=== PATIENT | female | born 1980 | race Caucasian/White ===

== ENCOUNTER 2016-12-05 08:00 | Day surgery (SDC) | payer BC, OTHER, SELFPAY ==
[2016-12-04 16:23] LABS: CHLORIDE,CL 105 mmol/L (98-110); SODIUM,NA 141 mmol/L (136-146)
[~2016-12-05 08:00] MED LIST: Lactated Ringers 1,000 ML IV SCH; Sodium Chloride 0.9% 10 ML Syringe FLUSH PRN; Sodium Chloride 0.9% 2.5 ML Syringe FLUSH PRN
[2016-12-05] MEDS ORDERED: Lidocaine 2% 5 ML SDV ONE (08:18)
[2016-12-05] MEDS ORDERED: fentaNYL 100 MCG/2 ML SDV ONE (08:19)
[2016-12-05] MEDS ORDERED: Midazolam 1 MG/ML 2 ML SDV ONE (08:19)
[2016-12-05] MEDS ORDERED: Propofol 200 MG/20 ML SDV ONE (08:19)
[2016-12-05] MEDS ORDERED: Lidocaine 1% 20 ML MDV ONE (08:42)
--- NOTE | 2016-12-05 08:43 | PCM.PREANE ---
Preanesthetic Assessment - Anesthesia/Transfusion/Family Hx Anesthesia History: Prior Anesthesia Reaction Type of Anesthesia Reaction: Other (see below) (hypotension and "heart stopped" after labor epidural placement and initial dosing) Transfusion History: No Prior Transfusion(s) - Review of Systems General: No Symptoms Pulmonary: No Symptoms Cardiovascular: No Symptoms Gastrointestinal: No symptoms Neurological: No Symptoms Other: Reports: None - Physical Assessment NPO Status Date: 12/04/16 O2 Sat by Pulse Oximetry: 98 Respiratory Rate: 16 Vital Signs: Last Vital Signs Temp 37.0 C 12/05/16 08:15 Pulse 86 12/05/16 08:15 Resp 16 12/05/16 08:15 BP 115/77 12/05/16 08:15 Pulse Ox 98 12/05/16 08:15 Height: 1.6 m Weight: 59.874 kg ASA Class: 2 Airway Class: Mallampati = 2 Dentition: Reports: Normal Dentition ROM/Head Extension: Full Lungs: Clear to auscultation, Normal respiratory effort Cardiovascular: Regular Rate, Regular Rhythm - Lab Values: Laboratory Last Values WBC 6.21 K/uL (4.0-11.0) 12/04/16 15:49 RBC 4.54 M/uL (4.30-5.90) 12/04/16 15:49 Hgb 13.4 g/dL (12.0-16.0) 12/04/16 15:49 Hct 41.2 % (36.0-46.0) 12/04/16 15:49 MCV 90.7 fL (80.0-98.0) 12/04/16 15:49 MCH 29.5 pg (27.0-32.0) 12/04/16 15:49 MCHC 32.5 g/dL (31.0-37.0) 12/04/16 15:49 RDW Std Deviation 45.6 fl (28.0-62.0) 12/04/16 15:49 RDW Coeff of Padma 14 % (11.0-15.0) 12/04/16 15:49 Plt Count 201 K/uL (150-400) 12/04/16 15:49 MPV 10.80 fL (7.40-12.00) 12/04/16 15:49 Nucleated RBC % 0.0 /100WBC 12/04/16 15:49 Nucleated RBCs # 0 K/uL 12/04/16 15:49 Sodium 141 mmol/L (136-146) 12/04/16 15:49 Potassium 4.0 mmol/L (3.5-5.1) 12/04/16 15:49 Chloride 105 mmol/L (98-110) 12/04/16 15:49 Carbon Dioxide 27 mmol/L (21-31) 12/04/16 15:49 BUN 7 mg/dL (6.0-23.0) 12/04/16 15:49 Creatinine 0.8 mg/dL (0.6-1.5) 12/04/16 15:49 Est Cr Clr Drug Dosing 80.42 mL/min 12/04/16 15:49 Estimated GFR (MDRD) > 60.0 ml/min 12/04/16 15:49 Glucose 71 mg/dL (60-110) 12/04/16 15:49 Calcium 8.9 mg/dL (8.8-10.8) 12/04/16 15:49 HCG, Qual NEGATIVE (NEG) 12/04/16 15:49 Blood Type B POSITIVE 12/04/16 15:49 Antibody Screen NEGATIVE 12/04/16 15:49 - Allergies Allergies/Adverse Reactions: Allergies Allergy/AdvReac Type Severity Reaction Status Date / Time divalproex sodium Allergy Swelling Verified 06/12/16 16:38 [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: Musculoskeletal History: Neurological History: Reports: Other (see below) Other Neuro History: febrile seizures as a child Psychiatric History: Reports: Anxiety, Depression - Infectious Disease History Infectious Disease History: Reports: None - Past Surgical History Head Surgeries/Procedures: Reports: None HEENT Surgical History: Reports: Oral surgery, Other (see below) Other HEENT Surgeries/Procedures: wisdom tooth surgery - SUBSTANCE USE Smoking Status *Q: Never Smoker Recreational Drug Use History: No - HOME MEDS Home Medications: Home Meds Diazepam [Valium] 1 tab PO ASDIRECTED PRN 11/12/16 [History] Multivitamin [Multivitamins] 1 tab PO DAILY 11/12/16 [History] Pseudoephedrine HCl [Sudafed] 30 mg PO DAILY 11/12/16 [History] buPROPion HCl [Wellbutrin Xl] 1 tab PO DAILY 11/12/16 [History] - CURRENT (IN HOUSE) MEDS Current Meds: Current Medications Lactated Ringer's (Ringers, Lactated) 1,000 mls @ 125 mls/hr IV ASDIRECTED LASHAWN Last Admin: 12/05/16 08:17 Dose: 125 mls/hr Sodium Chloride (Saline Flush) 10 ml FLUSH ASDIRECTED PRN PRN Reason: Keep Vein Open Sodium Chloride (Saline Flush) 2.5 ml FLUSH ASDIRECTED PRN PRN Reason: Keep Vein Open Discontinued Medications Fentanyl (Sublimaze) Confirm Administered Dose 100 mcg .ROUTE .STK-MED ONE Stop: 12/05/16 08:20 Lidocaine (Xylocaine-Mpf 2%) Confirm Administered Dose 5 ml .ROUTE .STK-MED ONE Stop: 12/05/16 08:19 Midazolam HCl (Versed 1 Mg/Ml) Confirm Administered Dose 2 mg .ROUTE .STK-MED ONE Stop: 12/05/16 08:20 Propofol (Diprivan 20 Ml) Confirm Administered Dose 400 mg .ROUTE .STK-MED ONE Stop: 12/05/16 08:20 Preanesthetic Assessment - ANESTHESIA/TRANSFUSION/FAMILY HX Family History of Anesthesia Reaction: No - PHYSICAL ASSESSMENT O2 Sat by Pulse Oximetry: 98 RR: 16 Vital Signs: Last Vital Signs Temp 37.0 C 12/05/16 08:15 Pulse 86 12/05/16 08:15 Resp 16 12/05/16 08:15 BP 115/77 12/05/16 08:15 Pulse Ox 98 12/05/16 08:15 Height: 1.6 m Weight: 59.874 kg - LAB Values: Laboratory Last Values WBC 6.21 K/uL (4.0-11.0) 12/04/16 15:49 RBC 4.54 M/uL (4.30-5.90) 12/04/16 15:49 Hgb 13.4 g/dL (12.0-16.0) 12/04/16 15:49 Hct 41.2 % (36.0-46.0) 12/04/16 15:49 MCV 90.7 fL (80.0-98.0) 12/04/16 15:49 MCH 29.5 pg (27.0-32.0) 12/04/16 15:49 MCHC 32.5 g/dL (31.0-37.0) 12/04/16 15:49 RDW Std Deviation 45.6 fl (28.0-62.0) 12/04/16 15:49 RDW Coeff of Padma 14 % (11.0-15.0) 12/04/16 15:49 Plt Count 201 K/uL (150-400) 12/04/16 15:49 MPV 10.80 fL (7.40-12.00) 12/04/16 15:49 Nucleated RBC % 0.0 /100WBC 12/04/16 15:49 Nucleated RBCs # 0 K/uL 12/04/16 15:49 Sodium 141 mmol/L (136-146) 12/04/16 15:49 Potassium 4.0 mmol/L (3.5-5.1) 12/04/16 15:49 Chloride 105 mmol/L (98-110) 12/04/16 15:49 Carbon Dioxide 27 mmol/L (21-31) 12/04/16 15:49 BUN 7 mg/dL (6.0-23.0) 12/04/16 15:49 Creatinine 0.8 mg/dL (0.6-1.5) 12/04/16 15:49 Est Cr Clr Drug Dosing 80.42 mL/min 12/04/16 15:49 Estimated GFR (MDRD) > 60.0 ml/min 12/04/16 15:49 Glucose 71 mg/dL (60-110) 12/04/16 15:49 Calcium 8.9 mg/dL (8.8-10.8) 12/04/16 15:49 HCG, Qual NEGATIVE (NEG) 12/04/16 15:49 Blood Type B POSITIVE 12/04/16 15:49 Antibody Screen NEGATIVE 12/04/16 15:49 - ALLERGIES Allergies/Adverse Reactions: Allergies Allergy/AdvReac Type Severity Reaction Status Date / Time divalproex sodium Allergy Swelling Verified 06/12/16 16:38 [From [facility]]
[2016-12-05] MEDS ORDERED: fentaNYL 100 MCG/2 ML SDV IVPUSH PRN (09:31)
[2016-12-05] MEDS ORDERED: Ketorolac 30 MG/ML SDV IVPUSH ONE (09:45)
[2016-12-05] MEDS ORDERED: Morphine 2 MG/ML Syringe IVPUSH PRN (09:45)
[2016-12-05] MEDS ORDERED: Morphine 4 MG/ML Syringe IVPUSH PRN (09:45)
[2016-12-05] MEDS ORDERED: Ketorolac 30 MG/ML SDV IVPUSH PRN (09:45)
[2016-12-05] MEDS ORDERED: Promethazine 25 MG/ML SDV IM PRN (09:45)
[2016-12-05] MEDS ORDERED: Ondansetron 4 MG/2 ML SDV IVPUSH PRN (09:45)
[2016-12-05] MEDS ORDERED: Acetaminophen/oxyCODONE 325-5 MG Tab PO PRN ×2 (09:45)
--- NOTE | 2016-12-05 09:48 | PCM.OPNOTE ---
- General Post-Op/Procedure Note Date of Surgery/Procedure: 12/05/16 Operative Procedure(s): leep Post-Op Diagnosis: Same Anesthesia Technique: MAC Primary Surgeon: Vitaliy Werner Computer Artist: Bhavani Solano Complications: None Condition: Good
--- NOTE | 2016-12-05 09:49 | PCM.DCSUM1 ---
Discharge Summary - Discharge Data Discharge Date: 12/05/16 Discharge Disposition: Home, Self-Care 01 Condition: Good - Patient Summary/Data Operative Procedure(s) Performed: leep - Patient Instructions Diet: Usual Diet as Tolerated Activity: As Tolerated Showering/Bathing: January Shower - Discharge Plan Home Medications: Home Meds Diazepam [Valium] 1 tab PO ASDIRECTED PRN 11/12/16 [History] Multivitamin [Multivitamins] 1 tab PO DAILY 11/12/16 [History] Pseudoephedrine HCl [Sudafed] 30 mg PO DAILY 11/12/16 [History] buPROPion HCl [Wellbutrin Xl] 1 tab PO DAILY 11/12/16 [History] - Discharge Summary/Plan Comment DC Time >30 min.: Yes - General Info Date of Service: 12/05/16 Functional Status: Reports: pain controlled - Review of Systems General: Reports: No Symptoms HEENT: Reports: no symptoms Pulmonary: Reports: no symptoms Cardiovascular: Reports: No Symptoms Gastrointestinal: Reports: No symptoms Genitourinary: Reports: no symptoms Musculoskeletal: Reports: no symptoms Skin: Reports: no symptoms Neurological: Reports: No Symptoms Psychiatric: Reports: no symptoms - Patient Data Vitals - Most Recent: Last Vital Signs Temp 37.0 C 12/05/16 08:15 Pulse 86 12/05/16 08:15 Resp 16 12/05/16 08:43 BP 115/77 12/05/16 08:15 Pulse Ox 98 12/05/16 08:43 Weight - Most Recent: 59.874 kg Lab Results - Last 24 hrs: Laboratory Results - last 24 hr 12/04/16 12/04/16 12/04/16 Range/Units 15:49 15:49 15:49 WBC 6.21 (4.0-11.0) K/uL RBC 4.54 (4.30-5.90) M/uL Hgb 13.4 (12.0-16.0) g/dL Hct 41.2 (36.0-46.0) % MCV 90.7 (80.0-98.0) fL MCH 29.5 (27.0-32.0) pg MCHC 32.5 (31.0-37.0) g/dL RDW Std Deviation 45.6 (28.0-62.0) fl RDW Coeff of Padma 14 (11.0-15.0) % Plt Count 201 (150-400) K/uL MPV 10.80 (7.40-12.00) fL Nucleated RBC % 0.0 /100WBC Nucleated RBCs # 0 K/uL Sodium 141 (136-146) mmol/L Potassium 4.0 (3.5-5.1) mmol/L Chloride 105 (98-110) mmol/L Carbon Dioxide 27 (21-31) mmol/L BUN 7 (6.0-23.0) mg/dL Creatinine 0.8 (0.6-1.5) mg/dL Est Cr Clr Drug Dosing 80.42 mL/min Estimated GFR (MDRD) > 60.0 ml/min Glucose 71 (60-110) mg/dL Calcium 8.9 (8.8-10.8) mg/dL HCG, Qual NEGATIVE (NEG) Blood Type Antibody Screen 12/04/16 Range/Units 15:49 WBC (4.0-11.0) K/uL RBC (4.30-5.90) M/uL Hgb (12.0-16.0) g/dL Hct (36.0-46.0) % MCV (80.0-98.0) fL MCH (27.0-32.0) pg MCHC (31.0-37.0) g/dL RDW Std Deviation (28.0-62.0) fl RDW Coeff of Padma (11.0-15.0) % Plt Count (150-400) K/uL MPV (7.40-12.00) fL Nucleated RBC % /100WBC Nucleated RBCs # K/uL Sodium (136-146) mmol/L Potassium (3.5-5.1) mmol/L Chloride (98-110) mmol/L Carbon Dioxide (21-31) mmol/L BUN (6.0-23.0) mg/dL Creatinine (0.6-1.5) mg/dL Est Cr Clr Drug Dosing mL/min Estimated GFR (MDRD) ml/min Glucose (60-110) mg/dL Calcium (8.8-10.8) mg/dL HCG, Qual (NEG) Blood Type B POSITIVE Antibody Screen NEGATIVE Med Orders - Current: Current Medications Fentanyl (Sublimaze) 50 mcg IVPUSH .Q5MIN PRN PRN Reason: Pain Stop: 12/09/16 09:32 Lactated Ringer's (Ringers, Lactated) 1,000 mls @ 125 mls/hr IV ASDIRECTED LASHAWN Last Admin: 12/05/16 08:17 Dose: 125 mls/hr Ketorolac Tromethamine (Toradol) 30 mg IVPUSH ONETIME ONE Stop: 12/05/16 09:46 Ketorolac Tromethamine (Toradol) 30 mg IVPUSH Q6H PRN PRN Reason: Pain (severe 7-10) Stop: 12/10/16 09:45 Morphine Sulfate (Morphine) 2 mg IVPUSH Q2H PRN PRN Reason: Pain (severe 7-10) Morphine Sulfate (Morphine) 4 mg IVPUSH Q2H PRN PRN Reason: Pain (severe 7-10) Ondansetron HCl (Zofran) 4 mg IVPUSH Q6H PRN PRN Reason: Nausea/Vomiting Oxycodone/Acetaminophen (Percocet 325-5 Mg) 1 tab PO Q4H PRN PRN Reason: Pain (moderate 4-6) Oxycodone/Acetaminophen (Percocet 325-5 Mg) 2 tab PO Q4H PRN PRN Reason: Pain (moderate 4-6) Promethazine HCl (Phenergan) 25 mg IM Q6H PRN PRN Reason: Nausea/Vomiting Sodium Chloride (Saline Flush) 10 ml FLUSH ASDIRECTED PRN PRN Reason: Keep Vein Open Sodium Chloride (Saline Flush) 2.5 ml FLUSH ASDIRECTED PRN PRN Reason: Keep Vein Open Discontinued Medications Fentanyl (Sublimaze) Confirm Administered Dose 100 mcg .ROUTE .STK-MED ONE Stop: 12/05/16 08:20 Lidocaine (Xylocaine-Mpf 2%) Confirm Administered Dose 5 ml .ROUTE .STK-MED ONE Stop: 12/05/16 08:19 Lidocaine HCl (Xylocaine 1%) Confirm Administered Dose 20 ml .ROUTE .STK-MED ONE Stop: 12/05/16 08:43 Midazolam HCl (Versed 1 Mg/Ml) Confirm Administered Dose 2 mg .ROUTE .STK-MED ONE Stop: 12/05/16 08:20 Propofol (Diprivan 20 Ml) Confirm Administered Dose 400 mg .ROUTE .STK-MED ONE Stop: 12/05/16 08:20 - Exam General: Reports: alert, oriented HEENT: Reports: Pupils equal, Pupils reactive, EOMI, Mucous membr. moist/pink Neck: Reports: supple Lungs: Reports: Clear to auscultation, Normal respiratory effort Cardiovascular: Reports: Regular Rate, Regular Rhythm Abdomen: Reports: bowel sounds present, soft, no tenderness, no distension (Female) Exam: Normal external exam, Normal speculum exam, Normal bimanual exam Rectal (Female) Exam: Normal Exam, Normal rectal tone Back Exam: Reports: normal inspection, full range of motion Extremities: Reports: no edema, normal pulses Skin: Reports: warm, dry, intact Wound/Incisions: Reports: healing well Neurological: Reports: no new focal deficit Psy/Mental Status: Reports: alert, normal affect, normal mood *Q Meaningful Use (DIS) - VTE *Q VTE Criteria *Q: - Stroke *Q Stroke Criteria *Q: - AMI *Q AMI Criteria *Q:
--- NOTE | 2016-12-05 10:23 | PCM.POSTAN ---
POST ANESTHESIA ASSESSMENT - MENTAL STATUS Mental Status: alert, oriented - RESPIRATORY Respiratory Status: respiratory rate WNL, airway patent - CARDIOVASCULAR CV Status: pulse rate WNL, blood pressure stable - GASTROINTESTINAL GI Status: no symptoms - POST OP HYDRATION Hydration Status: adequate & stable
--- NOTE | 2016-12-05 11:37 | OR ---
SURGEON: Vitaliy Werner MD DATE OF PROCEDURE: PREOPERATIVE DIAGNOSIS: High-grade abnormal Pap smear. POSTOPERATIVE DIAGNOSIS: High-grade abnormal Pap smear. OPERATION PERFORMED: LEEP conization of the cervix. ASSISTANTS: BRENDA bush and BINU Thomas. ANESTHESIA: MAC, Veronica Cherry. ESTIMATED BLOOD LOSS: Minimum. COMPLICATION: None. FINDINGS: High-grade abnormal Pap smear. INDICATION: Dietrich referred to the admit note. PROCEDURE IN DETAIL: The patient was brought to the OR, properly identified, and after adequate level of MAC anesthesia, the patient was placed in lithotomy position, prepped and draped in sterile fashion as usual and a weighted speculum was placed in vagina and then 1% Xylocaine injected around the cervix. Using a loop excision, cone shaped biopsy was removed from the cervix and sent for histopathology and then the base of the cone biopsy was cauterized with a ball electrocautery to stop the bleeding. Once that was accomplished, the procedure was ended and the patient tolerated the procedure well, went to recovery room in stable general condition. ARDEN / WILLIAN /[id number]
[2016-12-05 11:41] VITALS: BP 127/80
--- NOTE | 2016-12-05 12:05 | PCM48HPAN ---
Post Anesthesia Note - EVALUATION WITHIN 48HRS OF ANESTHETIC Vital Signs in Normal Range: Yes Patient Participated in Evaluation: Yes Respiratory Function Stable: Yes Airway Patent: Yes Cardiovascular Function Stable: Yes Hydration Status Stable: Yes Pain Control Satisfactory: Yes Nausea and Vomiting Control Satisfactory: Yes Mental Status Recovered: Yes
== END 2016-12-05 11:30 | disposition home or self-care (01) ==
LOC: MW.SDS 08:00
PROVIDERS: ATTEND Obstetrics & Gynecology
DX: N87.1 Moderate cervical dysplasia (principal); Z88.8 Allergy status to other drugs, medicaments and biological substances; Z79.899 Other long term (current) drug therapy; Z87.898 Personal history of other specified conditions
CPT/HCPCS: 36415; 57522; 80048; 84703; 85027; 86850; 86900; 86901; J2250; J3010; J7120; 00940; 88307; J2704

== ENCOUNTER → 2016-12-30 | Outpatient (CLI) | payer BC | LOC: MW.CHOBGYN 11:49 | PROVIDERS: ATTEND Obstetrics & Gynecology | DX: D64.9 Anemia, unspecified (principal) | CPT/HCPCS: 36415; 85014; 85018 ==

== ENCOUNTER 2017-02-19 18:10 | Emergency (ER) | payer BC, OTHER, SELFPAY ==
--- NOTE | 2017-02-19 18:31 | EDM.PDOC ---
ED HPI GENERAL MEDICAL PROBLEM - General Chief Complaint: Flank Pain Stated Complaint: STOMACH PAIN Time Seen by Provider: 02/19/17 18:26 Source of Information: Reports: Patient History Limitations: Reports: No Limitations - History of Present Illness INITIAL COMMENTS - FREE TEXT/NARRATIVE: HISTORY AND PHYSICAL: [36-year-old female presenting with right flank pain] History of Present Illness: [Patient has dysuria for 2 weeks she's had a stabbing pain for 4 days Similar to pain she has had in the past with previous renal stones] Review of Systems: As per history of present illness and below otherwise all systems reviewed and negative. Patient has history of previous renal stones Past medical history: As per history of present illness and as reviewed below otherwise noncontributory. Surgical history: As per history of present illness and as reviewed below otherwise noncontributory. Social history: No reported history of drug or alcohol abuse. Family history: As per history of present illness and as reviewed below otherwise noncontributory. Physical exam: Alert and oriented female who looks somewhat miserable HEENT: Atraumatic, normocehpalic, pupils reactive, negative for conjunctival pallor or scleral icterus, mucous membranes moist, throat clear, neck supple, nontender, trachea midline. Lungs: Clear to auscultation, breath sounds equal bilaterally, chest non tender. Heart: S1S2, regular, negative for clicks, rubs, or JVD. Abdomen: Soft, nondistended, nontender. Negative for masses or hepatossplenmegaly. Positive for costovertebral tenderness.R>L Pelvis: Stable nontender. Genitourinary: Deferred. Rectal: Deferred Extremities: Atraumatic, negative for cords or calf pain. Neurovascular unremarkable. Neuro: Awake, alert, oriented. Cranial nerves II through XII unremarkable. Cerebellum unremarkable. Motor and sensory unremarkable throughout. Exam nonfocal. Diagnostics: [CT abdomen pelvis UA] Therapeutics: [Toradol IM] Impression: [Right flank pain Moderate Stool] Plan: [Stool softener or laxative Referral to Dr. Valenzuela urologist] Definitive disposition and diagnosis as appropriate pending reevaluation and review of above. Onset: Gradual Duration: Day(s): (4), Getting Worse, Waxing/Waning Location: Reports: Back, Other (flank) Quality: Reports: Ache, Stabbing Severity: Severe Improves with: Reports: None Worsens with: Reports: None Right Flank Pain Score (Numeric/FACES): 6 - Related Data Allergies Allergy/AdvReac Type Severity Reaction Status Date / Time divalproex sodium Allergy Swelling Verified 06/12/16 16:38 [From Depakote] Home Meds: Home Meds Diazepam [Valium] 1 tab PO ASDIRECTED PRN 11/12/16 [History] Multivitamin [Multivitamins] 1 tab PO DAILY 11/12/16 [History] Pseudoephedrine HCl [Sudafed] 30 mg PO DAILY 11/12/16 [History] buPROPion HCl [Wellbutrin Xl] 1 tab PO DAILY 11/12/16 [History] Past Medical History HEENT History: Reports: Other (See Below) Other HEENT History: wears glasses Cardiovascular History: Reports: None Respiratory History: Reports: None Gastrointestinal History: Reports: None Genitourinary History: Reports: Renal Calculus 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 ED EXAM, GI/ABD - Physical Exam Exam: See Below (See dictation) Course - Vital Signs Last Recorded V/S: Last Vital Signs Temp 36.9 C 02/19/17 18:19 Pulse 86 02/19/17 18:19 Resp 15 02/19/17 18:19 BP 129/86 02/19/17 18:19 Pulse Ox 99 02/19/17 18:19 - Orders/Labs/Meds Orders: Active Orders 24 hr Category Date Time Status Abdomen Pelvis wo Cont [CT] Stat Exams 02/19/17 18:31 Taken Labs: Laboratory Tests 02/19/17 02/19/17 Range/Units 18:16 18:16 Urine Color YELLOW Urine Appearance CLEAR Urine pH 6.5 (5.0-8.0) Ur Specific [place] 1.010 (1.001-1.035) Urine Protein NEGATIVE (NEGATIVE) mg/dL Urine Glucose (UA) NEGATIVE (NEGATIVE) mg/dL Urine Ketones NEGATIVE (NEGATIVE) mg/dL Urine Occult Blood NEGATIVE (NEGATIVE) Urine Nitrite NEGATIVE (NEGATIVE) Urine Bilirubin NEGATIVE (NEGATIVE) Urine Urobilinogen 0.2 (<2.0) EU/dL Ur Leukocyte Esterase NEGATIVE (NEGATIVE) Urine RBC 0-1 (0-2/HPF) Urine WBC 0-1 (0-5/HPF) Ur Epithelial Cells RARE (NONE-FEW) Urine Bacteria RARE (NEGATIVE) Urine HCG, Qual NEGATIVE (NEGATIVE) Departure - Departure Time of Disposition: 19:38 Disposition: Home, Self-Care 01 Condition: good Clinical Impression: Renal calculus, Constipation - Discharge Information Referrals: Ivania Palmer NP [Primary Care Provider] - Don Valenzuela MD [Physician] - Forms: ED Department Discharge Additional Instructions: The following information is given to patients seen in the emergency department who are being discharged to home. This information is to outline your options for follow-up care. We provide all patients seen in our emergency department with a follow-up referral. The need for follow-up, as well as the timing and circumstances, are variable depending upon the specifics of your emergency department visit. If you don't have a primary care physician on staff, we will provide you with a referral. We always advise you to contact your personal physician following an emergency department visit to inform them of the circumstance of the visit and for follow-up with them and/or the need for any referrals to a consulting specialist. The emergency department will also refer you to a specialist when appropriate. This referral assures that you have the opportunity for followup care with a specialist. All of these measure are taken in an effort to provide you with optimal care, which includes your followup. Under all circumstances we always encourage you to contact your private physician who remains a resource for coordinating your care. When calling for followup care, please make the office aware that this follow-up is from your recent emergency room visit. If for any reason you are refused follow-up, please contact the [facility] emergency department at and asked to speak to the emergency department charge nurse. Referral has been made to Dr. Valenzuela, urologist [facility] - Urology [address] [place] [id number] Please call for an appointment for followup care Stool softener for mild laxative - My Orders Last 24 Hours: My Active Orders 02/19/17 18:31 Abdomen Pelvis wo Cont [CT] Stat - Assessment/Plan Last 24 Hours: My Active Orders 02/19/17 18:31 Abdomen Pelvis wo Cont [CT] Stat
[2017-02-19 20:01] VITALS: BP 118/75
--- NOTE | 2017-02-20 10:50 | CT ---
EXAM DATE: 02/19/17 PATIENT'S AGE: 36 Patient: RAJAN PARR Facility: [place], [place] Site . Site : [id number] Study: CT Abdomen/Pelvis [id number]/7/2017 7:16:35 PM Ordering Physician: Doctor Cervantes Final Report: INDICATION: bilateral flank pain TECHNIQUE: CT abdomen and pelvis without contrast. COMPARISON: None FINDINGS: Lower chest: Unremarkable. Liver: Unremarkable. Spleen: Unremarkable. Pancreas: Unremarkable. Gallbladder and bile ducts: Unremarkable. Kidneys: Punctate nonobstructing intrarenal calculi. Adrenal glands: Unremarkable. GI tract: Moderate amount of stool. Appendix is normal. Vascular structures: Unremarkable. Lymph nodes: Unremarkable. Miscellaneous: Unremarkable. No free air or significant free fluid. Pelvic Organs: Unremarkable. Bones: Unremarkable for age. IMPRESSION: 1. Punctate nonobstructing intrarenal calculi. 2. Moderate amount of stool. Dictated by Ari Valerio MD @ 02/19/2017 7:30:02 PM Dictated by: Ari Valerio MD @ 02/19/2017 19:32:41 (Electronic Signature) Report Signed by Proxy. [facility]
== END 2017-02-19 19:59 | disposition home or self-care (01) ==
LOC: MW.ED 18:10
DX: N20.0 Calculus of kidney (principal); K59.00 Constipation, unspecified; F41.9 Anxiety disorder, unspecified; F32.9 Major depressive disorder, single episode, unspecified; Z79.899 Other long term (current) drug therapy; Z88.8 Allergy status to other drugs, medicaments and biological substances
CPT/HCPCS: 74176; 74176-26; 81001; 81025; 99284; 99284-25

== ENCOUNTER 2017-09-15 17:11 | Emergency (ER) | payer BC, OTHER, SELFPAY ==
[2017-09-15] MEDS ORDERED: Ondansetron 4 MG/2 ML SDV IVPUSH ONE (17:51)
[2017-09-15] MEDS ORDERED: Ketorolac 30 MG/ML SDV IVPUSH ONE (17:51)
[2017-09-15] MEDS ORDERED: Sodium Chloride 0.9% 1,000 ML IV ONE (17:51)
[2017-09-15] MEDS ORDERED: methylPREDNISolone Sodium Succinate 125 MG/2 ML SDV IVPUSH ONE (17:52)
[2017-09-15] MEDS ORDERED: Sodium Chloride 0.9% 10 ML Syringe FLUSH PRN (17:52)
[2017-09-15] MEDS ORDERED: LORazepam 2 MG/ML MDV IVPUSH ONE (17:52)
[2017-09-15] MEDS ORDERED: diphenhydrAMINE 50 MG/ML SDV IVPUSH ONE (17:52)
[2017-09-15] MEDS ORDERED: Sodium Chloride 0.9% 2.5 ML Syringe FLUSH PRN (17:52)
--- NOTE | 2017-09-15 17:56 | EDM.PDOC ---
ED HPI GENERAL MEDICAL PROBLEM - General Chief Complaint: Headache Stated Complaint: HEADACHE Time Seen by Provider: 09/15/17 17:40 - History of Present Illness INITIAL COMMENTS - FREE TEXT/NARRATIVE: HISTORY AND PHYSICAL: History of present illness: The patient is a 37-year-old female with a history of anxiety and intermittent neck muscular problems for which she sees her provider at [facility], Keila Palmer, as well as Dr. Stewart our neurologist in the past; the patient presents today with left-sided neck pain and muscle pain that then progressed to a left-sided headache 8 days ago and has been constant despite taking [id number] Midol ibuprofen and Tylenol. The patient says she was going to get her period in the next couple of days and thought it might be related but has no migraine history and she denies any photophobia or weakness in her extremities with this headache. She says she has had chronic issues with musculoskeletal neck problems and has seen a chiropractor in the past as well. Patient had an MRI with Dr. Stewart on October 04 of last year and the results of that test have been reviewed by me which indicated a tiny diffuse disc bulge noted at C4 C5 and a small to moderate diffuse disc bulge noted at C5 -C6 resulting in some mild spinal canal stenosis and moderate bilateral neural foraminal stenosis. The patient says that these results were related to her but she has not been on steroids and she has been doing relatively well overall and has not seen Dr. Stewart since that time. 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 She does have nausea with the headache but has not had any vomiting fevers chills sinus congestion that is new or different as she states she has some chronic sinus issue. Patient has been eating and drinking normally and has had no trauma impacting her head neck or back. She has no thoracic or lumbar back pain and no weakness in the extremities but says that she will have intermittent tingling in her left hand which has happened in the past as well.the patient denies as her has had a vasectomy. Review of systems: As per history of present illness and below otherwise all systems reviewed and negative. Past medical history: As per history of present illness and as reviewed below otherwise noncontributory. Surgical history: As per history of present illness and as reviewed below otherwise noncontributory. Social history: No reported history of drug or alcohol abuse. Family history: As per history of present illness and as reviewed below otherwise noncontributory. Physical exam: Gen.: Well-developed well-nourished thin female who moves easily in the ED without distress and seems somewhat anxious on my evaluation. Vital signs have been noted by me HEENT: Atraumatic, normocephalic, pupils reactive, negative for conjunctival pallor or scleral icterus, mucous membranes moist, throat clear, neck supple, nontender, trachea midline. there is no cervical adenopathy or nuchal rigidity. There are no midline step-offs in his defects of the cervical spine but there is some reproducible paraspinal and trapezius tenderness bilaterally left greater than right on palpation extending into the scalp. There is some bilateral occipital nerve tenderness with palpation but there is no TMJ tenderness. There is no discrete sinus tenderness on palpation. Lungs: Clear to auscultation, breath sounds equal bilaterally, chest nontender. Heart: S1S2, regular rate and rhythm no overt murmurs Abdomen: Soft, nondistended, nontender. NABS Pelvis: Deferred Genitourinary: Deferred. Rectal: Deferred. Extremities: Atraumatic, negative for cords or calf pain. Neurovascular unremarkable. Neuro: Awake, alert, oriented. Cranial nerves II through XII unremarkable. Cerebellum unremarkable. Motor and sensory unremarkable throughout. Exam nonfocal. back: There are no midline step-offs in his defects of the thoracic or lumbar spine and no posterior rib or pelvis tenderness. Diagnostics: None Therapeutics: IV fluids Toradol Zofran Benadryl Solu-Medrol Ativan I discussed with the patient that she has not had any recent trauma or injury that a x-ray or CT scan of the neck would not have significant yield and that if this discomfort persisted that she potentially would need a repeat MRI as her last one was one year ago. She currently does not meet criteria for emergent MRI from the ED and she states understanding. I told her we would treat her pain symptomatically including treating a potential disc inflammation from her increased activity at work. Patient is already stating that she is feeling improvement and she states to me that she does have Flexeril at home that she can utilize and I will give her a Medrol Dosepak tramadol and Zofran. I've stressed need to follow-up with her provider at [facility] tomorrow as well as to schedule follow-up with Dr. Stewart as she may need imaging as an outpatient and further care. Impression: Left neck musculoskeletal pain/cephalgia rule out disc inflammation Definitive disposition and diagnosis as appropriate pending reevaluation and review of above. Headache Pain Score (Numeric/FACES): 4 - Related Data Allergies Allergy/AdvReac Type Severity Reaction Status Date / Time divalproex sodium Allergy Swelling Verified 09/15/17 17:27 [From Depakote] Home Meds: Home Meds Diazepam [Valium] 1 tab PO ASDIRECTED PRN 11/12/16 [History] Multivitamin [Multivitamins] 1 tab PO DAILY 11/12/16 [History] Pseudoephedrine HCl [Sudafed] 30 mg PO DAILY 11/12/16 [History] buPROPion HCl [Wellbutrin Xl] 400 mg PO DAILY 11/12/16 [History] Cyclobenzaprine [Flexeril] 10 mg PO ASDIRECTED 09/15/17 [History] Past Medical History - Past Health History Medical/Surgical History: Denies Medical/Surgical History HEENT History: Reports: Other (See Below) Other HEENT History: wears glasses Cardiovascular History: Reports: None Respiratory History: Reports: None Gastrointestinal History: Reports: None Genitourinary History: Reports: Renal Calculus 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: Musculoskeletal History: Neurological History: Reports: Other (See Below) Other Neuro History: febrile seizures as a child Psychiatric History: Reports: Anxiety, Depression - Infectious Disease History Infectious Disease History: Reports: None - Past Surgical History Head Surgeries/Procedures: Reports: None HEENT Surgical History: Reports: Oral Surgery, Other (See Below) Social & Family History - Family History Family Medical History: Noncontributory - Tobacco Use Smoking Status *Q: Never Smoker Used Tobacco, but Quit: No Second Hand Smoke Exposure: No - Caffeine Use Caffeine Use: Reports: None - Alcohol Use Days Per Week of Alcohol Use: 0 - Recreational Drug Use Recreational Drug Use: No ED ROS GENERAL - Review of Systems Review Of Systems: ROS reveals no pertinent complaints other than HPI. ED EXAM, GENERAL - Physical Exam Exam: See Below (See dictation) Course - Vital Signs Last Recorded V/S: Last Vital Signs Temp 36.2 C 09/15/17 17:24 Pulse 88 09/15/17 17:24 Resp 18 09/15/17 17:24 BP 120/70 09/15/17 17:24 Pulse Ox 98 09/15/17 17:24 - Orders/Labs/Meds Orders: Active Orders 24 hr Category Date Time Status Sodium Chloride 0.9% [Normal Saline] 1,000 ml Med 09/15/17 17:51 Active IV STAT Sodium Chloride 0.9% [Saline Flush] Med 09/15/17 17:52 Active 10 ml FLUSH ASDIRECTED PRN Sodium Chloride 0.9% [Saline Flush] Med 09/15/17 17:52 Active 2.5 ml FLUSH ASDIRECTED PRN Saline Lock Insert [OM.PC] Stat Oth 09/15/17 17:51 Ordered Medication Orders Sodium Chloride (Normal Saline) 1,000 mls @ 999 mls/hr IV STAT ONE Stop: 09/15/17 18:51 Last Admin: 09/15/17 18:10 Dose: 999 mls/hr Sodium Chloride (Saline Flush) 10 ml FLUSH ASDIRECTED PRN PRN Reason: Keep Vein Open Sodium Chloride (Saline Flush) 2.5 ml FLUSH ASDIRECTED PRN PRN Reason: Keep Vein Open Meds: Medications Generic Name Dose Route Start Last Admin Trade Name Freq PRN Reason Stop Dose Admin Sodium Chloride 1,000 mls @ 999 mls/hr 09/15/17 17:51 09/15/17 18:10 Normal Saline IV 09/15/17 18:51 999 mls/hr STAT ONE Administration Sodium Chloride 10 ml 09/15/17 17:52 Saline Flush FLUSH ASDIRECTED PRN Keep Vein Open Sodium Chloride 2.5 ml 09/15/17 17:52 Saline Flush FLUSH ASDIRECTED PRN Keep Vein Open Discontinued Medications Generic Name Dose Route Start Last Admin Trade Name Freq PRN Reason Stop Dose Admin Diphenhydramine HCl 25 mg 09/15/17 17:52 09/15/17 18:19 Benadryl IVPUSH 09/15/17 17:53 25 mg ONETIME ONE Administration Ketorolac Tromethamine 30 mg 09/15/17 17:51 09/15/17 18:14 Toradol IVPUSH 09/15/17 17:52 30 mg ONETIME ONE Administration Lorazepam 1 mg 09/15/17 17:52 09/15/17 18:21 Ativan IVPUSH 09/15/17 17:53 1 mg ONETIME ONE Administration Methylprednisolone Sodium Succinate 125 mg 09/15/17 17:52 09/15/17 18:16 Solu-Medrol IVPUSH 09/15/17 17:53 125 mg ONETIME ONE Administration Ondansetron HCl 4 mg 09/15/17 17:51 09/15/17 18:12 Zofran IVPUSH 09/15/17 17:52 4 mg ONETIME ONE Administration Departure - Departure Time of Disposition: 18:41 Disposition: Home, Self-Care 01 Condition: Good Clinical Impression: Musculoskeletal neck pain, Cervical disc disease Cephalgia Qualifiers: Headache type: unspecified Headache chronicity pattern: unspecified pattern Intractability: not intractable Qualified Code(s): R51 - Headache - Discharge Information Referrals: Ivania Palmer NP [Primary Care Provider] - Forms: ED Department Discharge Additional Instructions: The following information is given to patients seen in the emergency department who are being discharged to home. This information is to outline your options for follow-up care. We provide all patients seen in our emergency department with a follow-up referral. The need for follow-up, as well as the timing and circumstances, are variable depending upon the specifics of your emergency department visit. If you don't have a primary care physician on staff, we will provide you with a referral. We always advise you to contact your personal physician following an emergency department visit to inform them of the circumstance of the visit and for follow-up with them and/or the need for any referrals to a consulting specialist. The emergency department will also refer you to a specialist when appropriate. This referral assures that you have the opportunity for followup care with a specialist. All of these measure are taken in an effort to provide you with optimal care, which includes your followup. Under all circumstances we always encourage you to contact your private physician who remains a resource for coordinating your care. When calling for followup care, please make the office aware that this follow-up is from your recent emergency room visit. If for any reason you are refused follow-up, please contact the [facility] emergency department at and ask to speak to the emergency department charge nurse. [facility] [address] [place] [address] [place] [address] [facility] Specialty care-Neurology Professional Building [address] [place] [address], [address] [place] [address] Please contact her provider Keila Palmer at [facility] tomorrow for reevaluation and further care the next one to 2 days and also contact Dr. Stewart's clinic to schedule a follow-up appointment with her as we discussed. Rest push hydration and take all medications as prescribed. You have been given tramadol, Zofran and a Medrol pack from [employer]. Please start the Medrol pack tomorrow and use the Zofran and tramadol as needed this evening - My Orders Last 24 Hours: My Active Orders 09/15/17 17:51 Sodium Chloride 0.9% [Normal Saline] 1,000 ml IV STAT Saline Lock Insert [OM.PC] Stat 09/15/17 17:52 Sodium Chloride 0.9% [Saline Flush] 10 ml FLUSH ASDIRECTED PRN Sodium Chloride 0.9% [Saline Flush] 2.5 ml FLUSH ASDIRECTED PRN - Assessment/Plan Last 24 Hours: My Active Orders 09/15/17 17:51 Sodium Chloride 0.9% [Normal Saline] 1,000 ml IV STAT Saline Lock Insert [OM.PC] Stat 09/15/17 17:52 Sodium Chloride 0.9% [Saline Flush] 10 ml FLUSH ASDIRECTED PRN Sodium Chloride 0.9% [Saline Flush] 2.5 ml FLUSH ASDIRECTED PRN
[2017-09-15 19:04] VITALS: BP 112/62
== END 2017-09-15 19:06 | disposition home or self-care (01) ==
LOC: MW.ED 17:11
DX: M50.90 Cervical disc disorder, unspecified, unspecified cervical region (principal); R51 Headache; Z88.8 Allergy status to other drugs, medicaments and biological substances; Z79.899 Other long term (current) drug therapy
CPT/HCPCS: 96361; 96374; 96375; 99284; J1200; J1885; J2060; J2405; J2930; J7040; 99283

== ENCOUNTER 2017-12-31 22:52 | Emergency (ER) | payer BC ==
--- NOTE | 2017-12-31 23:02 | EDM.PDOC ---
ED HPI GENERAL MEDICAL PROBLEM - General Chief Complaint: Neurological Problem Stated Complaint: HAD SEIZURE/HANDS SHAKY Time Seen by Provider: 12/31/17 23:01 Source of Information: Reports: Patient - History of Present Illness INITIAL COMMENTS - FREE TEXT/NARRATIVE: HISTORY AND PHYSICAL: History of present illness: [Patient presents with concern of seizure-like activity 24 hours ago] Patient with history of anxiety on Wellbutrin and Valium presents with history of slurred speech and numbness and tingling in her hands this occurred 2 days ago she also had some contraction of her wrists last night she attributes to seizure activity Currently she is asymptomatic no fever nausea vomiting diarrhea constipation chest pain shortness breath headache dizziness palpitation no bowel or urine symptoms no slurred each no motor weakness or sensory deficit She has been under a lot of stresses in the last week her puppy had she had taken several doses of Valium prior to the onset of the slurred speech she is uncertain of her Valium is 2.5 mg or 5 mg and she may have taken too Wellbutrin yesterday she is not taking any medication today Review of systems: As per history of present illness and below otherwise all systems reviewed and negative. Past medical history: As per history of present illness and as reviewed below otherwise noncontributory. Surgical history: As per history of present illness and as reviewed below otherwise noncontributory. Social history: No reported history of drug or alcohol abuse. Family history: As per history of present illness and as reviewed below otherwise noncontributory. Physical exam: HEENT: Atraumatic, normocephalic, pupils reactive, negative for conjunctival pallor or scleral icterus, mucous membranes moist, throat clear, neck supple, nontender, trachea midline. Lungs: Clear to auscultation, breath sounds equal bilaterally, chest nontender. Heart: S1S2, regular, negative for clicks, rubs, or JVD. Abdomen: Soft, nondistended, nontender. Negative for masses or hepatosplenomegaly. Negative for costovertebral tenderness. Pelvis: Stable nontender. Genitourinary: Deferred. Rectal: Deferred. Extremities: Atraumatic, negative for cords or calf pain. Neurovascular unremarkable. Neuro: Awake, alert, oriented. Cranial nerves II through XII unremarkable. Cerebellum unremarkable. Motor and sensory unremarkable throughout. Exam nonfocal. Diagnostics: [CBC CMP UA hCG Chest [address] no contrast ] Therapeutics: [None Continue medications as prescribed follow-up with primary care within 2 weeks] Return if symptoms persist or worsen Impression: Anxiety/stress reaction Medication effect medical screening exam ] Definitive disposition and diagnosis as appropriate pending reevaluation and review of above. Head Pain Score (Numeric/FACES): 4 - Related Data Allergies Allergy/AdvReac Type Severity Reaction Status Date / Time divalproex sodium Allergy Swelling Verified 12/31/17 23:03 [From Depakote] SSRIs Allergy Tremors Uncoded 12/31/17 23:03 Home Meds: Home Meds buPROPion HCl [Wellbutrin Xl] 300 mg PO DAILY 11/12/16 [History] Past Medical History - Past Health History Medical/Surgical History: Denies Medical/Surgical History HEENT History: Reports: Other (See Below) Other HEENT History: wears glasses Cardiovascular History: Reports: None Respiratory History: Reports: None Gastrointestinal History: Reports: None Genitourinary History: Reports: Renal Calculus [employer]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 History: Neurological History: Reports: Other (See Below) Other Neuro History: febrile seizures as a child Psychiatric History: Reports: Anxiety, Depression - Infectious Disease History Infectious Disease History: Reports: None - Past Surgical History Head Surgeries/Procedures: Reports: None HEENT Surgical History: Reports: Oral Surgery, Other (See Below) Social & Family History - Family History Family Medical History: Noncontributory - Tobacco Use Smoking Status *Q: Never Smoker Used Tobacco, but Quit: No Second Hand Smoke Exposure: No - Caffeine Use Caffeine Use: Reports: None - Alcohol Use Days Per Week of Alcohol Use: 0 - Recreational Drug Use Recreational Drug Use: No ED ROS GENERAL - Review of Systems Review Of Systems: ROS reveals no pertinent complaints other than HPI. ED EXAM, GENERAL - Physical Exam Exam: See Below Course - Vital Signs Last Recorded V/S: Last Vital Signs Temp 97.7 F 12/31/17 22:59 Pulse 78 01/01/18 00:06 Resp 18 01/01/18 00:06 BP 123/70 01/01/18 00:06 Pulse Ox 98 01/01/18 00:06 - Orders/Labs/Meds Orders: Active Orders 24 hr Category Date Time Status Chest 2V [CR] Stat Exams 12/31/17 23:01 Taken Head wo Cont [CT] Stat Exams 12/31/17 23:01 Taken DRUG SCREEN, URINE [URCHEM] Stat Lab 12/31/17 23:07 Ordered HCG QUALITATIVE,URINE [URCHEM] Stat Lab 12/31/17 23:15 Ordered UA W/MICROSCOPIC [URIN] Stat Lab 12/31/17 23:01 Ordered Labs: Laboratory Tests 12/31/17 12/31/17 12/31/17 Range/Units 23:01 23:06 23:06 WBC 6.31 (4.0-11.0) K/uL RBC 3.97 L (4.30-5.90) M/uL Hgb 12.2 (12.0-16.0) g/dL Hct 35.9 L (36.0-46.0) % MCV 90.4 (80.0-98.0) fL MCH 30.7 (27.0-32.0) pg MCHC 34.0 (31.0-37.0) g/dL RDW Std Deviation 44.3 (28.0-62.0) fl RDW Coeff of Padma 13 (11.0-15.0) % Plt Count 207 (150-400) K/uL MPV 10.60 (7.40-12.00) fL Neut % (Auto) 50.6 (48.0-80.0) % Lymph % (Auto) 36.5 (16.0-40.0) % Terrell % (Auto) 7.8 (0.0-15.0) % Eos % (Auto) 4.6 (0.0-7.0) % Baso % (Auto) 0.5 (0.0-1.5) % Neut # (Auto) 3.2 (1.4-5.7) K/uL Lymph # (Auto) 2.3 (0.6-2.4) K/uL Terrell # (Auto) 0.5 (0.0-0.8) K/uL Eos # (Auto) 0.3 (0.0-0.7) K/uL Baso # (Auto) 0.0 (0.0-0.1) K/uL Nucleated RBC % 0.0 /100WBC Nucleated RBCs # 0 K/uL Sodium 144 (136-145) mmol/L Potassium 3.7 (3.5-5.1) mmol/L Chloride 108 H (98-107) mmol/L Carbon Dioxide 27.4 (21.0-32.0) mmol/L BUN 10 (7.0-18.0) mg/dL Creatinine 1.0 (0.6-1.0) mg/dL Est Cr Clr Drug Dosing 65.12 mL/min Estimated GFR (MDRD) > 60.0 ml/min Glucose 110 H (74-106) mg/dL Calcium 8.8 (8.5-10.1) mg/dL Total Bilirubin 0.1 L (0.2-1.0) mg/dL AST 14 L (15-37) IU/L ALT 16 (14-63) IU/L Alkaline Phosphatase 46 (46-116) U/L Total Protein 6.8 (6.4-8.2) g/dL Albumin 4.0 (3.4-5.0) g/dL Globulin 2.8 (2.0-3.5) g/dL Albumin/Globulin Ratio 1.4 (1.3-2.8) TSH 3rd Generation (0.36-3.74) uIU/mL Urine Color YELLOW Urine Appearance CLEAR Urine pH 5.5 (5.0-8.0) Ur Specific [place] >= 1.030 (1.001-1.035) Urine Protein NEGATIVE (NEGATIVE) mg/dL Urine Glucose (UA) NEGATIVE (NEGATIVE) mg/dL Urine Ketones NEGATIVE (NEGATIVE) mg/dL Urine Occult Blood NEGATIVE (NEGATIVE) Urine Nitrite NEGATIVE (NEGATIVE) Urine Bilirubin NEGATIVE (NEGATIVE) Urine Urobilinogen 0.2 (<2.0) EU/dL Ur Leukocyte Esterase NEGATIVE (NEGATIVE) Urine RBC NONE SEEN (0-2/HPF) Urine WBC 0-2 (0-5/HPF) Ur Epithelial Cells FEW (NONE-FEW) Urine Bacteria FEW (NEGATIVE) Urine Mucus LIGHT (NONE-MOD) Urine HCG, Qual (NEGATIVE) Urine Opiates Screen (NEGATIVE) Ur Oxycodone Screen (NEGATIVE) Urine Methadone Screen (NEGATIVE) Ur Barbiturates Screen (NEGATIVE) Ur Phencyclidine Scrn (NEGATIVE) Ur Amphetamine Screen (NEGATIVE) U Methamphetamines Scrn (NEGATIVE) U Benzodiazepines Scrn (NEGATIVE) U Cocaine Metab Screen (NEGATIVE) U Marijuana (THC) Screen (NEGATIVE) Ethyl Alcohol mg/dL 12/31/17 12/31/1718 Range/Units 23:06 23:07 23:15 WBC (4.0-11.0) K/uL RBC (4.30-5.90) M/uL Hgb (12.0-16.0) g/dL Hct (36.0-46.0) % MCV (80.0-98.0) fL MCH (27.0-32.0) pg MCHC (31.0-37.0) g/dL RDW Std Deviation (28.0-62.0) fl RDW Coeff of Padma (11.0-15.0) % Plt Count (150-400) K/uL MPV (7.40-12.00) fL Neut % (Auto) (48.0-80.0) % Lymph % (Auto) (16.0-40.0) % Terrell % (Auto) (0.0-15.0) % Eos % (Auto) (0.0-7.0) % Baso % (Auto) (0.0-1.5) % Neut # (Auto) (1.4-5.7) K/uL Lymph # (Auto) (0.6-2.4) K/uL Terrell # (Auto) (0.0-0.8) K/uL Eos # (Auto) (0.0-0.7) K/uL Baso # (Auto) (0.0-0.1) K/uL Nucleated RBC % /100WBC Nucleated RBCs # K/uL Sodium (136-145) mmol/L Potassium (3.5-5.1) mmol/L Chloride (98-107) mmol/L Carbon Dioxide (21.0-32.0) mmol/L BUN (7.0-18.0) mg/dL Creatinine (0.6-1.0) mg/dL Est Cr Clr Drug Dosing mL/min Estimated GFR (MDRD) ml/min Glucose (74-106) mg/dL Calcium (8.5-10.1) mg/dL Total Bilirubin (0.2-1.0) mg/dL AST (15-37) IU/L ALT (14-63) IU/L Alkaline Phosphatase (46-116) U/L Total Protein (6.4-8.2) g/dL Albumin (3.4-5.0) g/dL Globulin (2.0-3.5) g/dL Albumin/Globulin Ratio (1.3-2.8) TSH 3rd Generation 0.71 (0.36-3.74) uIU/mL Urine Color Urine Appearance Urine pH (5.0-8.0) Ur Specific [place] (1.001-1.035) Urine Protein (NEGATIVE) mg/dL Urine Glucose (UA) (NEGATIVE) mg/dL Urine Ketones (NEGATIVE) mg/dL Urine Occult Blood (NEGATIVE) Urine Nitrite (NEGATIVE) Urine Bilirubin (NEGATIVE) Urine Urobilinogen (<2.0) EU/dL Ur Leukocyte Esterase (NEGATIVE) Urine RBC (0-2/HPF) Urine WBC (0-5/HPF) Ur Epithelial Cells (NONE-FEW) Urine Bacteria (NEGATIVE) Urine Mucus (NONE-MOD) Urine HCG, Qual NEGATIVE (NEGATIVE) Urine Opiates Screen NEGATIVE (NEGATIVE) Ur Oxycodone Screen NEGATIVE (NEGATIVE) Urine Methadone Screen NEGATIVE (NEGATIVE) Ur Barbiturates Screen NEGATIVE (NEGATIVE) Ur Phencyclidine Scrn NEGATIVE (NEGATIVE) Ur Amphetamine Screen NEGATIVE (NEGATIVE) U Methamphetamines Scrn NEGATIVE (NEGATIVE) U Benzodiazepines Scrn POSITIVE (NEGATIVE) U Cocaine Metab Screen NEGATIVE (NEGATIVE) U Marijuana (THC) Screen NEGATIVE (NEGATIVE) Ethyl Alcohol <3 mg/dL Departure - Departure Time of Disposition: 00:29 Disposition: Home, Self-Care 01 Preliminary Cause of *Q: Sepsis & Multi System Organ Failure Clinical Impression: Anxiety, Anxiety about health, Stress reaction, Medication side effect - Discharge Information Referrals: Ivania Palmer NP [Primary Care Provider] - Forms: ED Department Discharge Additional Instructions: Continue medication as directed Return if symptoms persist or worsen or new concerning symptoms develop Follow-up with primary care within 2 weeks The following information is given to patients seen in the emergency department who are being discharged to home. This information is to outline your options for follow-up care. We provide all patients seen in our emergency department with a follow-up referral. The need for follow-up, as well as the timing and circumstances, are variable depending upon the specifics of your emergency department visit. If you don't have a primary care physician on staff, we will provide you with a referral. We always advise you to contact your personal physician following an emergency department visit to inform them of the circumstance of the visit and for follow-up with them and/or the need for any referrals to a consulting specialist. The emergency department will also refer you to a specialist when appropriate. This referral assures that you have the opportunity for follow-up care with a specialist. All of these measure are taken in an effort to provide you with optimal care, which includes your follow-up. Under all circumstances we always encourage you to contact your private physician who remains a resource for coordinating your care. When calling for follow-up care, please make the office aware that this follow-up is from your recent emergency room visit. If for any reason you are refused follow-up, please contact the [facility] emergency department at and asked to speak to the emergency department charge nurse. - My Orders Last 24 Hours: My Active Orders 12/31/17 23:01 Chest 2V [CR] Stat Head wo Cont [CT] Stat UA W/MICROSCOPIC [URIN] Stat 12/31/17 23:07 DRUG SCREEN, URINE [URCHEM] Stat 12/31/17 23:15 HCG QUALITATIVE,URINE [URCHEM] Stat - Assessment/Plan Last 24 Hours: My Active Orders 12/31/17 23:01 Chest 2V [CR] Stat Head wo Cont [CT] Stat UA W/MICROSCOPIC [URIN] Stat 12/31/17 23:07 DRUG SCREEN, URINE [URCHEM] Stat 12/31/17 23:15 HCG QUALITATIVE,URINE [URCHEM] Stat
[2017-12-31 23:50] LABS: CHLORIDE,CL 108 mmol/L (98-107); SODIUM,NA 144 mmol/L (136-145)
[2018-01-01 00:40] VITALS: BP 135/79
--- NOTE | 2018-01-01 10:34 | CT ---
EXAM DATE: 12/31/17 PATIENT'S AGE: 37 Patient: RAJAN PARR Facility: [place], [place] Site . Site : 1980 Study: CT Head wo cont [id number]/19/2018 12:03:32 AM Ordering Physician: Shemar Torres Final Report: INDICATION: Seizure 1 day prior TECHNIQUE: CT head without contrast. COMPARISON: None FINDINGS: CSF spaces: Within normal limits for age. Brain parenchyma: The solomon-white differentiation is normal. No sign of mass, hemorrhage, or midline shift. Skull base and calvarium: The visualized paranasal sinuses and mastoid air cells demonstrate no acute or significant findings. The visualized orbits are grossly unremarkable. No skull fractures. IMPRESSION: Unremarkable noncontrast head CT. Dictated by Jordi Bazan MD @ 01/01/2018 12:16:41 AM Dictated by: Jordi Bazan MD @ 01/01/2018 00:16:46 (Electronic Signature) Report Signed by Proxy. [facility] SHOREIsaias
--- NOTE | 2018-01-01 10:35 | CR ---
EXAM DATE: 12/31/17 PATIENT'S AGE: 37 Patient: RAJAN PARR Facility: [place], [place] Site . Site : 1980 Study: XRay Chest [id number]/19/2018 12:04:02 AM Ordering Physician: Shemar Torres Final Report: INDICATION: PT STATES SEIZURE YESTERDAY, NOT FEELING RIGHT TODAY TECHNIQUE: Chest 2 views. COMPARISON: None. FINDINGS: Cardiovascular and mediastinum: Heart size and vasculature are normal in caliber and appearance. Mediastinum is within normal limits. Lungs and pleural spaces: Lungs are clear. No sign of infiltrate or mass. No sign of pleural effusion. No pneumothorax. Bones and soft tissues: No significant findings. IMPRESSION: Unremarkable chest. Dictated by: Jordi Bazan MD @ 01/01/2018 00:20:07 (Electronic Signature) Report Signed by Proxy. SARI
== END 2018-01-01 00:35 | disposition home or self-care (01) ==
LOC: MW.ED 22:52
DX: R20.0 Anesthesia of skin (principal); T42.4X5A Adverse effect of benzodiazepines, initial encounter; F41.9 Anxiety disorder, unspecified; F43.9 Reaction to severe stress, unspecified; Z88.8 Allergy status to other drugs, medicaments and biological substances; Z79.899 Other long term (current) drug therapy
CPT/HCPCS: 36415; 70450; 71046; 80053; 80305; 81001; 81025; 82962; 84443; 85025; 99284; G0480

== ENCOUNTER 2018-12-29 09:34 | Emergency (ER) | payer BC ==
--- NOTE | 2018-12-29 10:29 | CR ---
EXAMINATION: Right elbow HISTORY: Pain COMPARISON: None TECHNIQUE: 3 views FINDINGS/IMPRESSION: There is no acute osseous abnormality, dislocation, or fracture. Bone mineralization and joint spaces are preserved. No soft tissue swelling or joint effusion.
--- NOTE | 2018-12-29 10:40 | EDM.PDOC ---
ED HPI GENERAL MEDICAL PROBLEM - General Chief Complaint: Upper Extremity Injury/Pain Stated Complaint: PAIN IN RT ARM Time Seen by Provider: 12/29/18 10:38 Source of Information: Reports: Patient - History of Present Illness INITIAL COMMENTS - FREE TEXT/NARRATIVE: HISTORY AND PHYSICAL: History of present illness: [Patient presents with elbow pain 5 out of 10 nonradiating patient states it is tolerable, she attributes this pain to her elbow being stuck between a couch and a banister railing there is no actual injury, limited pinched the elbow while she was cleaning. On exam the elbow has full range of motion appears to be painless passively she has warts worsening of the pain with straightening her arm neck and reproduce over extensor muscle groups in tendon insertions entire limb is neurovascularly intact no bruising or open lesion no redness warmth or drainage full range of motion shoulder elbow and wrist] Review of systems: As per history of present illness and below otherwise all systems reviewed and negative. Past medical history: As per history of present illness and as reviewed below otherwise noncontributory. Surgical history: As per history of present illness and as reviewed below otherwise noncontributory. Social history: No reported history of drug or alcohol abuse. Family history: As per history of present illness and as reviewed below otherwise noncontributory. Physical exam: HEENT: Atraumatic, normocephalic, pupils reactive, negative for conjunctival pallor or scleral icterus, mucous membranes moist, throat clear, neck supple, nontender, trachea midline. Lungs: Clear to auscultation, breath sounds equal bilaterally, chest nontender. Heart: S1S2, regular, negative for clicks, rubs, or JVD. Abdomen: Soft, nondistended, nontender. Negative for masses or hepatosplenomegaly. Negative for costovertebral tenderness. Pelvis: Stable nontender. Genitourinary: Deferred. Rectal: Deferred. Extremities: Atraumatic, negative for cords or calf pain. Neurovascular unremarkable. Neuro: Awake, alert, oriented. Cranial nerves II through XII unremarkable. Cerebellum unremarkable. Motor and sensory unremarkable throughout. Exam nonfocal. Diagnostics: [Right elbow 3 views] Therapeutics: Rest ice Toradol Impression: [Right elbow injury] Definitive disposition and diagnosis as appropriate pending reevaluation and review of above. right elbow Pain Score (Numeric/FACES): 5 - Related Data Allergies Allergy/AdvReac Type Severity Reaction Status Date / Time divalproex sodium Allergy Swelling Verified 12/29/18 09:47 [From Depakote] SSRIs Allergy Tremors Uncoded 12/31/17 23:03 Home Meds: Home Meds . 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 History: Reports: Musculoskeletal History: Reports: None Neurological History: Reports: Other (See Below) Other Neuro History: febrile seizures as a child Psychiatric History: Reports: Anxiety, Depression Endocrine/Metabolic History: Reports: None Hematologic History: Reports: None Immunologic History: Reports: None Oncologic (Cancer) History: Reports: None Dermatologic History: Reports: None - Infectious Disease History Infectious Disease History: Reports: None - Past Surgical History Head Surgeries/Procedures: Reports: None HEENT Surgical History: Reports: Oral Surgery, Other (See Below) Endocrine Surgical History: Reports: None Neurological Surgical History: Reports: None Musculoskeletal Surgical History: Reports: None Oncologic Surgical History: Reports: None Dermatological Surgical History: Reports: None Social & Family History - Family History Family Medical History: Noncontributory - Tobacco Use Smoking Status *Q: Never Smoker Second Hand Smoke Exposure: No - Caffeine Use Caffeine Use: Reports: Coffee, Energy Drinks, Soda, Tea - Recreational Drug Use Recreational Drug Use: Yes Recreational Drug Type: Reports: Marijuana/Hashish Recreational Drug Use Frequency: Rarely Review of Systems - Review of Systems Review Of Systems: See Below ED EXAM, GENERAL - Physical Exam Exam: See Below Course - Vital Signs Last Recorded V/S: Last Vital Signs Temp 97.1 F 12/29/18 09:47 Pulse 65 12/29/18 09:47 Resp 18 12/29/18 09:47 BP 128/67 12/29/18 09:47 Pulse Ox 99 12/29/18 09:47 Departure - Departure Time of Disposition: 10:41 Disposition: Home, Self-Care 01 Condition: Good Clinical Impression: Injury of right elbow - Discharge Information Referrals: Ivania Palmer NP [Primary Care Provider] - Forms: ED Department Discharge Additional Instructions: The following information is given to patients seen in the emergency department who are being discharged to home. This information is to outline your options for follow-up care. We provide all patients seen in our emergency department with a follow-up referral. The need for follow-up, as well as the timing and circumstances, are variable depending upon the specifics of your emergency department visit. If you don't have a primary care physician on staff, we will provide you with a referral. We always advise you to contact your personal physician following an emergency department visit to inform them of the circumstance of the visit and for follow-up with them and/or the need for any referrals to a consulting specialist. The emergency department will also refer you to a specialist when appropriate. This referral assures that you have the opportunity for follow-up care with a specialist. All of these measure are taken in an effort to provide you with optimal care, which includes your follow-up. Under all circumstances we always encourage you to contact your private physician who remains a resource for coordinating your care. When calling for follow-up care, please make the office aware that this follow-up is from your recent emergency room visit. If for any reason you are refused follow-up, please contact the [facility] emergency department at and asked to speak to the emergency department charge nurse.
[2018-12-29 11:00] VITALS: BP 138/85
== END 2018-12-29 10:58 | disposition home or self-care (01) ==
LOC: MW.ED 09:34
DX: S59.901A Unspecified injury of right elbow, initial encounter (principal); Z88.8 Allergy status to other drugs, medicaments and biological substances; W23.1XXA Caught, crushed, jammed, or pinched between stationary objects, initial encounter
CPT/HCPCS: 73080-26-RT; 73080-RT; 99282; 99283-25

== ENCOUNTER 2019-08-01 22:16 | Emergency (ER) | payer BC ==
[2019-08-01] MEDS ORDERED: Ketorolac 60 MG/2 ML SDV IM ONE (22:29)
--- NOTE | 2019-08-01 22:34 | EDM.PDOC ---
ED HPI GENERAL MEDICAL PROBLEM - General Chief Complaint: Lower Extremity Injury/Pain Stated Complaint: RT LEG IS SWOLLEN Time Seen by Provider: 08/01/19 22:23 - History of Present Illness INITIAL COMMENTS - FREE TEXT/NARRATIVE: HISTORY AND PHYSICAL: History of present illness: The patient is a 39-year-old female who presents with 3 days of discomfort aching and some mild swelling to the anterior aspect of her right leg. She denies any trauma to the area and has no posterior calf swelling or pain and no joint pain in the ankle or the knee. She does not say that she had any direct trauma to the area but says that certain movements will make the pain worse. She has taken [id number] ibuprofen area she denies any neurosensory changes in her right leg and no distal ankle or foot/toe pain nor any proximal knee thigh or hip pain. She has no skin breaks or lesions to the area. The patient denies as she finished her period 3 days ago and it was regular and she denies any sexual activity recently Review of systems: As per history of present illness and below otherwise all systems reviewed and negative. Past medical history: As per history of present illness and as reviewed below otherwise noncontributory. Surgical history: As per history of present illness and as reviewed below otherwise noncontributory. Social history: No reported history of drug or alcohol abuse. Family history: As per history of present illness and as reviewed below otherwise noncontributory. Physical exam: General: Well-developed well-nourished female who is nontoxic and ambulated into the ED without distress. Vital signs are noted by me HEENT: Atraumatic, normocephalic, negative for conjunctival pallor or scleral icterus, mucous membranes moist, throat clear, neck supple, nontender, trachea midline. Lungs: Clear to auscultation, breath sounds equal bilaterally, chest nontender. Heart: S1S2, regular rate and rhythm no overt murmurs Abdomen: Soft, nondistended, nontender. NABS Pelvis: Stable nontender. No lateral hip tenderness on the right Genitourinary: Deferred. Rectal: Deferred. Extremities: Atraumatic, negative for cords or calf pain. Full range of motion without defects or deficits of all extremities including the right lower leg. There is no calf swelling tenderness or deep calf or popliteal fossa tenderness on the right and there is no joint effusion in the near the ankle nor any warmth redness or swelling. The knee thigh and hip are nontender without defects or deformities as is the tibia and fibula ankle and distal foot. There is some ill-defined pinkish coloration and swelling to the anterior aspect of the tibial soft tissue near where the tibialis anterior is located and there is more discomfort when the patient dorsiflexes the foot. There is no skin break seen for any lesions or rashes seen and the mild soft tissue swelling is not circumferential. There is no warmth Neurovascular unremarkable. Neuro: Awake, alert, oriented. Cranial nerves II through XII unremarkable. Cerebellum unremarkable. Motor and sensory unremarkable throughout. Exam nonfocal. Diagnostics: X-ray right tib-fib, CBC CMP CRP sedimentation rate Therapeutics: Toradol Impression: Right lower leg pain/swelling, rule out myositis Definitive disposition and diagnosis as appropriate pending reevaluation and review of above. right lower leg Pain Score (Numeric/FACES): 5 - Related Data Allergies Allergy/AdvReac Type Severity Reaction Status Date / Time divalproex sodium Allergy Swelling Verified 08/01/19 22:23 [From Depakote] SSRIs Allergy Tremors Uncoded 08/01/19 22:23 Home Meds: Home Meds . [No Known Home Meds] 12/29/18 [History] Past Medical History - Past Health History Medical/Surgical History: Denies Medical/Surgical History HEENT History: Reports: Other (See Below) Other HEENT History: wears glasses Cardiovascular History: Reports: None Respiratory History: Reports: None Gastrointestinal History: Reports: None Genitourinary History: Reports: Renal Calculus [employer] History: Reports: Musculoskeletal History: Reports: None Neurological History: Reports: Other (See Below) Other Neuro History: febrile seizures as a child Psychiatric History: Reports: Anxiety, Depression Endocrine/Metabolic History: Reports: None Hematologic History: Reports: None Immunologic History: Reports: None Oncologic (Cancer) History: Reports: None Dermatologic History: Reports: None - Infectious Disease History Infectious Disease History: Reports: None - Past Surgical History Head Surgeries/Procedures: Reports: None HEENT Surgical History: Reports: Oral Surgery, Other (See Below) Endocrine Surgical History: Reports: None Neurological Surgical History: Reports: None Musculoskeletal Surgical History: Reports: None Oncologic Surgical History: Reports: None Dermatological Surgical History: Reports: None Social & Family History - Family History Family Medical History: Noncontributory - Caffeine Use Caffeine Use: Reports: Coffee, Energy Drinks, Soda, Tea Review of Systems - Review of Systems Review Of Systems: Comprehensive ROS is negative, except as noted in HPI. ED EXAM, GENERAL - Physical Exam Exam: See Below (See dictation) Course - Vital Signs Last Recorded V/S: Last Vital Signs Temp 36.8 C 08/01/19 22:23 Pulse 92 08/01/19 22:23 Resp 18 08/01/19 22:23 BP 130/88 08/01/19 22:23 Pulse Ox 98 08/01/19 22:23 - Orders/Labs/Meds Labs: Laboratory Tests 08/01/19 08/01/19 08/01/19 Range/Units 22:40 22:40 22:40 WBC 9.22 (4.0-11.0) K/uL RBC 3.96 L (4.30-5.90) M/uL Hgb 11.9 L (12.0-16.0) g/dL Hct 36.5 (36.0-46.0) % MCV 92.2 (80.0-98.0) fL MCH 30.1 (27.0-32.0) pg MCHC 32.6 (31.0-37.0) g/dL RDW Std Deviation 47.1 (28.0-62.0) fl RDW Coeff of Padma 14 (11.0-15.0) % Plt Count 228 (150-400) K/uL MPV 11.00 (7.40-12.00) fL Neut % (Auto) 54.2 (48.0-80.0) % Lymph % (Auto) 32.0 (16.0-40.0) % [place] % (Auto) 8.6 (0.0-15.0) % Eos % (Auto) 4.8 (0.0-7.0) % Baso % (Auto) 0.4 (0.0-1.5) % Neut # (Auto) 5.0 (1.4-5.7) K/uL Lymph # (Auto) 3.0 H (0.6-2.4) K/uL [place] # (Auto) 0.8 (0.0-0.8) K/uL Eos # (Auto) 0.4 (0.0-0.7) K/uL Baso # (Auto) 0.0 (0.0-0.1) K/uL Nucleated RBC % 0.0 /100WBC Nucleated RBCs # 0 K/uL ESR 6 (0-19) mm/hr Sodium 143 (136-145) mmol/L Potassium 3.4 L (3.5-5.1) mmol/L Chloride 105 (98-107) mmol/L Carbon Dioxide 29.3 (21.0-32.0) mmol/L BUN 11 (7.0-18.0) mg/dL Creatinine 0.9 (0.6-1.0) mg/dL Est Cr Clr Drug Dosing 69.42 mL/min Estimated GFR (MDRD) > 60.0 ml/min Glucose 100 (74-106) mg/dL Calcium 8.2 L (8.5-10.1) mg/dL Total Bilirubin 0.1 L (0.2-1.0) mg/dL AST 19 (15-37) IU/L ALT 21 (14-63) IU/L Alkaline Phosphatase 55 (46-116) U/L C-Reactive Protein < 0.20 (0.00-0.90) mg/dL Total Protein 6.7 (6.4-8.2) g/dL Albumin 3.4 (3.4-5.0) g/dL Globulin 3.3 (2.6-4.0) g/dL Albumin/Globulin Ratio 1.0 (0.9-1.6) Meds: Medications Discontinued Medications Generic Name Dose Route Start Last Admin Trade Name Farzad PRN Reason Stop Dose Admin Ketorolac Tromethamine 60 mg 08/01/19 22:29 08/01/19 22:43 Toradol IM 08/01/19 22:30 60 mg ONETIME ONE Administration Departure - Departure Time of Disposition: 23:03 Disposition: Home, Self-Care 01 Condition: Good Clinical Impression: Right leg pain - Discharge Information Referrals: PCP,None [Primary Care Provider] - Forms: ED Department Discharge Additional Instructions: The following information is given to patients seen in the emergency department who are being discharged to home. This information is to outline your options for follow-up care. We provide all patients seen in our emergency department with a follow-up referral. The need for follow-up, as well as the timing and circumstances, are variable depending upon the specifics of your emergency department visit. If you don't have a primary care physician on staff, we will provide you with a referral. We always advise you to contact your personal physician following an emergency department visit to inform them of the circumstance of the visit and for follow-up with them and/or the need for any referrals to a consulting specialist. The emergency department will also refer you to a specialist when appropriate. This referral assures that you have the opportunity for followup care with a specialist. All of these measure are taken in an effort to provide you with optimal care, which includes your followup. Under all circumstances we always encourage you to contact your private physician who remains a resource for coordinating your care. When calling for followup care, please make the office aware that this follow-up is from your recent emergency room visit. If for any reason you are refused follow-up, please contact the [facility] emergency department at and ask to speak to the emergency department charge nurse. [facility] Professional Building [address] [place] [address], [address] [place] [address] Use ice to area of pain and swelling after all activities and continue with over -the-counter ibuprofen or use the diclofenac you have been prescribed. Please call and schedule a follow-up appointment in our clinic for further care and evaluation of this symptom and return to ER as needed and as discussed
--- NOTE | 2019-08-01 22:45 | CR ---
INDICATION: Right lower leg pain for 5 days. No known injury TECHNIQUE: Tibia-fibula radiograph 2 views right COMPARISON: None FINDINGS: Bone: No acute fractures or aggressive bone lesions are identified. Joint: The visualized knee and ankle joints are unremarkable. No significant joint effusion is seen. Soft tissue: Unremarkable. No radiopaque foreign bodies are seen. IMPRESSION: 1. No acute osseous injuries or abnormalities are noted. Dictated by: Mike Medellin MD @ 08/01/2019 22:43:40 (Electronically Signed)
[2019-08-01 23:00] LABS: BLOOD UREA NITROGEN,BUN 11 mg/dL (7.0-18.0); CARBON DIOXIDE,CO2 29.3 mmol/L (21.0-32.0); CHLORIDE,CL 105 mmol/L (98-107); GLUCOSE RANDOM 100 mg/dL (74-106); POTASSIUM,K 3.4 mmol/L (3.5-5.1); SODIUM,NA 143 mmol/L (136-145)
[2019-08-01 23:23] VITALS: BP 102/45; PULSE 65
== END 2019-08-01 23:23 | disposition home or self-care (01) ==
LOC: MW.ED 22:16
DX: M79.661 Pain in right lower leg (principal); Z88.8 Allergy status to other drugs, medicaments and biological substances
CPT/HCPCS: 36415; 73590; 80053; 85025; 85652; 86140; 96372; 99284; J1885; 99283